=== PATIENT | female | born 1975 | race Two or more races ===

== ENCOUNTER 2018-12-27 14:05 | Emergency (ER) | payer SELFPAY ==
[~2018-12-27] VITALS: Ht 157.5 cm; Wt 77.1 kg
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
[2018-12-27] MEDS ORDERED: IBUPROFEN600 MG ORAL (14:20)
[2018-12-27 14:38] VITALS: BP 121/71
== END 2018-12-27 14:36 | disposition home or self-care (01) ==
LOC: EDBD 14:05 → EMR 14:30
DX: S00.93XA Contusion of unspecified part of head, initial encounter (principal); Y04.2XXA Assault by strike against or bumped into by another person, initial encounter; Y92.9 Unspecified place or not applicable
CPT/HCPCS: 99282